=== PATIENT | female | born 1955 | race Caucasian/White ===

== ENCOUNTER 2022-12-02 09:11 | Outpatient (RCR) | payer MEDICARE, MEDICAID | END 2022-12-02 14:00 | LOC: OPPGERO 09:11 | DX: F31.9 Bipolar disorder, unspecified (principal); F43.20 Adjustment disorder, unspecified; E11.9 Type 2 diabetes mellitus without complications; I10 Essential (primary) hypertension ==

== ENCOUNTER 2022-12-04 09:34 | Outpatient (RCR) | payer MEDICARE, MEDICAID | END 2023-01-04 21:24 | disposition home or self-care (01) | LOC: OPPGERO 09:34 | DX: F31.31 Bipolar disorder, current episode depressed, mild (principal); F43.20 Adjustment disorder, unspecified; E78.00 Pure hypercholesterolemia, unspecified; I10 Essential (primary) hypertension ==

== ENCOUNTER 2023-08-05 17:27 | Outpatient (RCR) | payer MEDICARE, MEDICAID | END 2023-09-03 11:55 | disposition home or self-care (01) | LOC: OPPGERO 17:27 | DX: F31.62 Bipolar disorder, current episode mixed, moderate (principal); F23 Brief psychotic disorder ==

== ENCOUNTER 2023-09-04 12:45 | Outpatient (RCR) | payer MEDICARE, MEDICAID | END 2023-10-02 15:02 | disposition home or self-care (01) | LOC: OPPGERO 12:45 | DX: F31.62 Bipolar disorder, current episode mixed, moderate (principal) ==

== ENCOUNTER 2023-10-06 09:00 | Outpatient (RCR) | payer MEDICARE, MEDICAID | END 2023-11-04 17:31 | disposition home or self-care (01) | LOC: OPPGERO 09:00 | DX: F31.62 Bipolar disorder, current episode mixed, moderate (principal) ==

== ENCOUNTER 2023-11-05 09:00 | Outpatient (RCR) | payer MEDICARE, MEDICAID | END 2023-12-03 09:46 | disposition home or self-care (01) | LOC: OPPGERO 09:00 | DX: F31.62 Bipolar disorder, current episode mixed, moderate (principal) ==